=== PATIENT | female | born 1985 | race Caucasian/White ===

== ENCOUNTER 2018-12-02 10:59 | Inpatient (IN) ==
[2018-12-02] MEDS ORDERED: 0.9 % Sodium Chloride 1,000 ML IVC ONE (11:34)
[2018-12-02] MEDS ORDERED: Metoclopramide 10 MG/2 ML VIAL IVP ONE (11:34)
[2018-12-02 12:11] LABS: Basophils % 0.8 %; Eosinophils # 0.2 K/mcL (0.0-0.6); Eosinophils % 3.6 %; Hematocrit 41.3 % (35.3-44.9); Hemoglobin 14.2 g/dL (11.5-15.4); Immature Granulocytes % 0.4 % (0-4); Lymphocytes # 1.8 K/mcL (0.6-4.6); Lymphocytes % 34.5 %; Mean Corpuscular HGB Conc 34.4 g/dL (31.6-35.5); Mean Corpuscular Hemoglobin 30.9 pg (28.0-33.3); Mean Platelet Volume 10.1 fL (9.4-12.4); Monocytes # 0.4 K/mcL (0.0-1.3); Monocytes % 7.5 %; Neutrophils # 2.8 K/mcL (1.6-8.9); Platelet Count 238 K/mcL (140-400); Red Blood Count 4.59 M/mcL (3.82-4.97); Segmented Neutrophils % 53.2 %
[2018-12-02 12:24] LABS: BUN/Creatinine Ratio 14 (6-26); Blood Urea Nitrogen 11 mg/dL (6-20); Calcium 9.4 mg/dL (8.6-10.3); Carbon Dioxide 26 mEq/L (23-29); Chloride 106 mEq/L (98-107); Glucose 94 mg/dL (70-105); Osmolality,Calculated 281 (280-300); Potassium 3.8 mEq/L (3.5-5.1); Sodium 136 mEq/L (136-145); eGFR For Non-African Americans > 60 (> 60)
[2018-12-02] MEDS ORDERED: Acetaminophen/Butalbital/CaffeineTABLET PO STA (12:44)
[2018-12-02] MEDS ORDERED: Magnesium Sulfate 1 GM in D5% in Water 100 ML IVPB ONE (12:44)
[2018-12-02] MEDS ORDERED: Dexamethasone 4 MG/ML VIAL IVP ONE (12:44)
[2018-12-02] MEDS ORDERED: *HR* FentaNYL (PF) 100 MCG/2 ML VIAL IVP ONE ×2 (13:48→16:32)
[2018-12-02 14:53] LABS: Red Blood Cell,CSF < 0.002 M/mcL
[2018-12-02 15:08] LABS: Glucose,CSF 48 mg/dL (40-70); Total Protein,CSF 94 mg/dL (15-45)
[2018-12-02] MEDS ORDERED: Vancomycin 1,000 MG in D5% in Water 250 ML IVPB ONE (15:19)
[2018-12-02] MEDS ORDERED: *HR* HYDROcodone/Acet 5/325 mg TABLET PO PRN (15:33)
[2018-12-02] MEDS ORDERED: Naloxone 0.4 MG/ML INJ IVP PRN (15:33)
[2018-12-02] MEDS ORDERED: D5% in Water 1,000 ML IVC PRN (15:34)
[2018-12-02] MEDS ORDERED: Ketorolac 30 MG/ML VIAL IVP PRN (15:57)
--- NOTE | 2018-12-02 15:58 | Internal Med History&Physical ---
Date of Encounter: 12/02/18 Time of Encounter: 15:56 Internal Medicine - H&P: HPI Chief complaint: Headache Admitted From: Emergency Dept Plans for Post Hospital Care: Home History of present illness: Ms. Hahn is a 33 year old female with no significant past medical history who presented to the ED complaining of a headache that has been throbbing as well as neck pain and stiffness for the past 3 days. This started on Radha when she woke up experiencing significant neck pain and frontal headache was described as throbbing. She took Tylenol and aspirin did not help. This continued into the next day. She also felt some associated chills. She thinks she has had a fever but did not measure temperature. Today at work she could not move her neck to either side and was having significant headache and decided to come and get evaluated. She says she has had one episode of blurry vision with headaches as well. Denies any nausea, vomiting, dizziness, chest pain, shortness breath, abdominal pain, diarrhea, constipation, urinary symptoms, or neurological symptoms other than above. When she came to the ED the patient was hemodynamically stable. She had a CT head that was negative for any acute find ings. She had a lumbar puncture done with CSF fluid, and back with protein total of 94, glucose of 48, nucleated cells of 811. This was highly suggestive of meningitis and the patient was ordered acyclovir, vancomycin, and ceftriaxone. The patient tells me that she has severe allergy to penicillins as she was child that included significant findings as well as significant dyspnea. Past Med Surg Social Fam HX - Past Medical History Medical history: no medical history Additional medical history: ovarian cysts Psychiatric history: no psych history - Past Surgical History Surgical History: no surgical history Additional surgical history: partial hysterectomy - Social History Smoking Status: Current every day smoker Smokeless Tobacco Status: No Alcohol use: none Drug use: none Internal Medicine - H&P: Meds DiphenhydraMINE [Benadryl] 25 mg PO Q6HR PRN #20 capsule 06/28/18 [Rx] Hydrocortisone 1% OINT [Cortaid] 1 appl TP BID #1 tube 06/28/18 [Rx] predniSONE [PredniSONE] See Taper PO DAILY #18 tablet 06/28/18 [Rx] Allergy/AdvReac Type Severity Reaction Status Date / Time Amoxicillin Allergy Rash Verified 06/28/18 10:49 naproxen Allergy Anaphylaxis Verified 06/28/18 10:49 Penicillins Allergy Difficulty Verified 06/28/18 10:49 Breathing All Systems PM: A 10-system review of systems was performed and is negative for pertinent findings except as documented above in the HPI. Review of systems: All systems reviewed are negative except as mentioned above - Constitutional Vitals: Temp Pulse Resp BP Pulse Ox 98.3 F 98 16 121/81 100 12/02/18 15:17 12/02/18 15:17 12/02/18 15:17 12/02/18 15:17 12/02/18 15:17 Exam: GEN: NAD HEENT: AT, NC, No cyanosis, oral mucosa is moist, No JVD Lymphatics: No lymphadenoapthy Eyes: Extrocular muscles intact, anicteric CVS:RRR. S1, S2, No m/r/g RESP: CTAB ABD: Soft, NT, ND, +BS EXT: No edema, No rashes, 2+ DP NEURO: Nonfocal, CN II-XII intact, No focal motor or sensory deficits Psych: Cooperative, Not anxious or depressed Internal Med - H&P Results - Labs CBC & Chem 7: 12/02/18 11:53 12/02/18 11:53 Labs: Short CBC 12/02/18 Range/Units 11:53 WBC 5.3 (4.3-11.1) K/mcL Hgb 14.2 (11.5-15.4) g/dL Hct 41.3 (35.3-44.9) % Plt Count 238 (140-400) K/mcL Neutrophils # 2.8 (1.6-8.9) K/mcL BMP 12/02/18 11:53 Sodium 136 Potassium 3.8 Chloride 106 Carbon Dioxide 26 BUN 11 Creatinine 0.79 Glucose 94 Calcium 9.4 - Impressions ITS Impressions Head CT 12/02/18 11:34 IMPRESSION: No acute intracranial abnormality. D/ / Santino Elizabeth / Santino Elizabeth Interpreting Provider: Santino Elizabeth - Assessment and plan (1) Meningitis Current Visit: Yes Status: Acute Assessment and plan: Labs are suggestive of meningitis. Likely viral or bacterial. We will consult infectious disease. We will treat symptoms of headaches conservatively. We will put the patient on empiric treatment for now including acyclovir. I have discussed with pharmacy about antibiotics given her allergy to penicillins we will use meropenem. Also on vancomycin. Follow-up on CSF cultures. (2) Tobacco abuse Current Visit: Yes Status: Acute Assessment and plan: Nicotine patch (3) DVT prophylaxis Current Visit: Yes Status: Acute Assessment and plan: SCDs - Time Spent With Patient Total time spent is greater than 50% in coordination of care (as documented) at patient's floor/unit and/or counseling patient:
[2018-12-02] MEDS ORDERED: Acyclovir 1,000 MG in D5% in Water 250 ML IVPB ONE (16:00)
[2018-12-02 16:17] LABS: Appearance,CSF Clear (Clear)
--- NOTE | 2018-12-02 16:31 | Emergency Department Note ---
Disposition Clinical Impression: Meningitis Disposition: Admitted As Inpatient Condition: Fair Headache HPI - General Chief Complaint: ED Headache Stated Complaint: Headache, neck pain Time Seen by Provider: 12/02/18 11:12 Source: patient Mode of arrival: ambulatory Limitations: no limitations Nursing Notes Reviewed: Yes Vital Signs Reviewed: Yes - History of Present Illness HPI Narrative: 33-year-old female presents emergency Department with concerns of headache 2 days. Patient states she has severe neck pain, never usually has headaches. This headache is severe and worse of her life. She denies fever but reports chills. Patient is nauseated secondary to the pain. She has difficulty moving right to left on exam during the evaluation. Pain Scale: 10 - Related Data Previous Rx's Medication Instructions Recorded DiphenhydraMINE [Benadryl] 25 mg PO Q6HR PRN #20 capsule 06/28/18 Hydrocortisone 1% OINT [Cortaid] 1 appl TP BID #1 tube 06/28/18 predniSONE [PredniSONE] See Taper PO DAILY #18 tablet 06/28/18 Allergies Allergy/AdvReac Type Severity Reaction Status Date / Time Amoxicillin Allergy Rash Verified 06/28/18 10:49 naproxen Allergy Anaphylaxis Verified 06/28/18 10:49 Penicillins Allergy Difficulty Verified 06/28/18 10:49 Breathing All systems ED: reviewed and negative except as stated. Review of Systems: As Per HPI Headache PMH - Past Medical History Medical history: Reports: no medical history Female Surgical History: Reports: no surgical history Psychiatric history: Reports: no psych history [employer] history: Reports: bilateral tubal ligation - Social History Smoking Status: Current every day smoker Alcohol use: Reports: none Drug use: Reports: none Physical Exam General: Alert and in no acute distress Skin: Warm, dry, intact. No rash Head: Normocephalic and atraumatic Neck: Supple, trachea midline and no tenderness Cardiovascular: RRR, no murmur, normal perfusion Respiratory: CTAB, no wheezing, cough, or respiratory distress Musculoskeletal: Normal strength, no tenderness, swelling or deformity GI: Soft, nontender, nondistended. Bowel sounds present Neuro: A&O to person, place, time and situation. No focal deficits noted on exam Psychiatric: cooperative and appropriate mood and affect. Course Vital Signs Temperature 98.3 F 12/02/18 11:00 Pulse Rate 98 12/02/18 11:00 Respiratory Rate 16 12/02/18 11:00 Blood Pressure 121/81 12/02/18 11:00 O2 Sat by Pulse Oximetry 100 12/02/18 11:00 Temperature 98.3 F 12/02/18 15:17 Pulse Rate 98 12/02/18 15:17 Respiratory Rate 16 12/02/18 15:17 Blood Pressure 121/81 12/02/18 15:17 O2 Sat by Pulse Oximetry 100 12/02/18 15:17 Oxygen Delivery Oxygen Delivery Room Air Headache - MDM Narrative Medical decision making narrative: Lumbar puncture performed after discussion of risks and benefits and verbal and written consent obtained. Patient has significantly elevated leukocytosis on CSF results, it is unclear whether this is viral versus bacterial meningitis however I do believe that this is more likely viral. Patient was placed on isolation precautions and will be admitted to the hospitalist for further care and evaluation while cultures of the CSF are pending. She was started on acyclovir, ceftriaxone and vancomycin in the emergency department. - Medical Records Medical records reviewed: Yes I reviewed the patient's medical records. - Lab Data Lab results reviewed: Yes I reviewed the patient's lab results. Result diagrams: 12/02/18 11:53 12/02/18 11:53 Lab Results 12/02/18 12/02/18 12/02/18 Range/Units 11:53 11:53 14:17 WBC 5.3 (4.3-11.1) K/mcL RBC 4.59 (3.82-4.97) M/mcL Hgb 14.2 (11.5-15.4) g/dL Hct 41.3 (35.3-44.9) % MCV 90.0 (83.0-100.0) fL MCH 30.9 (28.0-33.3) pg MCHC 34.4 (31.6-35.5) g/dL RDW 12.0 (11.5-14.5) % Plt Count 238 (140-400) K/mcL MPV 10.1 (9.4-12.4) fL Immature Gran % 0.4 (0-4) % Seg Neutrophils % 53.2 % Lymphocytes % 34.5 % Monocytes % 7.5 % Eosinophils % 3.6 % Basophils % 0.8 % Neutrophils # 2.8 (1.6-8.9) K/mcL Lymphocytes # 1.8 (0.6-4.6) K/mcL Monocytes # 0.4 (0.0-1.3) K/mcL Eosinophils # 0.2 (0.0-0.6) K/mcL Basophils # 0.0 (0.0-0.2) K/mcL Sodium 136 (136-145) mEq/L Potassium 3.8 (3.5-5.1) mEq/L Chloride 106 (98-107) mEq/L Carbon Dioxide 26 (23-29) mEq/L BUN 11 (6-20) mg/dL Creatinine 0.79 (0.60-1.20) mg/dL Est GFR ( Amer) > 60 (> 60) Est GFR (Non-Af Amer) > 60 (> 60) BUN/Creatinine Ratio 14 (6-26) Glucose 94 (70-105) mg/dL Calculated Osmolality 281 (280-300) Calcium 9.4 (8.6-10.3) mg/dL CSF Volume 2.0 mL CSF Appearance Clear (Clear) CSF Color Colorless (Colorless) CSF RBC < 0.002 (0.000 - 0.002) M/mcL CSF Tot Nucleated Cells 811 H* (0-5) TNC/mcL CSF Seg Neutrophils TNP CSF Band Neutrophils % TNP CSF Lymphocytes % 100.0 % CSF Monocytes % TNP CSF Eosinophils % TNP CSF Basophils % TNP CSF Other Cells % TNP CSF Glucose 48 (40-70) mg/dL CSF Xanth Comm Not Observed (Not Observe) CSF Total Protein 94 H (15-45) mg/dL - Radiology Data Radiology results reviewed: Yes I reviewed the patient's radiology results.
[2018-12-02] MEDS: OXYCODONE Oral CONC 10 MG/0.5 ML ORAL.SYG SL PRN (18:15)
[2018-12-02] MEDS: Nicotine 21 MG PATCH.TD24 TD SCH (18:16)
[2018-12-03 04:13] LABS: Basophils % 0.3 %; Hematocrit 37.1 % (35.3-44.9); Immature Granulocytes % 0.3 % (0-4); Lymphocytes # 0.9 K/mcL (0.6-4.6); Lymphocytes % 15.5 %; Mean Corpuscular HGB Conc 34.8 g/dL (31.6-35.5); Mean Corpuscular Hemoglobin 30.9 pg (28.0-33.3); Mean Corpuscular Volume 88.8 fL (83.0-100.0); Mean Platelet Volume 10.1 fL (9.4-12.4); Monocytes # 0.4 K/mcL (0.0-1.3); Monocytes % 6.7 %; Neutrophils # 4.5 K/mcL (1.6-8.9); Platelet Count 234 K/mcL (140-400); Red Blood Count 4.18 M/mcL (3.82-4.97); Red Cell Distribution Width 11.7 % (11.5-14.5); Segmented Neutrophils % 77.2 %
[2018-12-03 04:18] LABS: Hemoglobin 12.9 g/dL (11.5-15.4)
[2018-12-03 04:31] LABS: BUN/Creatinine Ratio 16 (6-26); Blood Urea Nitrogen 10 mg/dL (6-20); Calcium 8.7 mg/dL (8.6-10.3); Carbon Dioxide 24 mEq/L (23-29); Chloride 103 mEq/L (98-107); Glucose 123 mg/dL (70-105); Magnesium 1.8 mg/dL (1.6-2.6); Osmolality,Calculated 290 (280-300); Potassium 3.9 mEq/L (3.5-5.1); Sodium 140 mEq/L (136-145); eGFR For Non-African Americans > 60 (> 60)
[2018-12-03] MEDS: Acetaminophen 325 MG TABLET PO PRN (04:49)
[2018-12-03] MEDS ORDERED: traMADol 50 MG TABLET PO ONE (05:06)
[2018-12-03] MEDS ORDERED: Acyclovir 700 MG in D5% in Water 100 ML IVPB SCH (08:00)
[2018-12-03] MEDS: Nicotine 21 MG PATCH.TD24 TD SCH (08:46)
--- NOTE | 2018-12-03 09:12 | Infectious Disease Consult ---
Date of Encounter: 12/03/18 Time of Encounter: 10:00 Assessment and Plan (1) Meningitis Status: Acute Assessment and plan: Pt presented with headache/neck pain, back pain. Pt likely has asceptic meningitis, likely viral. Lumbar puncture with CSF analysis showed: - clear, colorless, RBC < 0.002, total nucleated cells 811, lymphocytes 100%, glucose 48, xanthochromia not observed, and total protein 94 - based on results of CSF it suggests aseptic meningitis, likely viral meningitis 12/02/18 Influenza type A/B antigen negative 12/02/18 CSF cryptococcal antigen negative 12/02/18 CSF culture: pending 12/02/18 Herpes simplex PCR body fluid/ 12/02/18 Herpes PCR blood pending 12/02/18 Varicella zoster virus PCR pending 12/03/18 Respiratory infection panel ordered and pending Recommendations: - Currently pt is on acyclovir, meropenem, and vancomycin - Stop medication regiment if pt clinically stable with no fever, focal neurologic deficits, altered mental status, and no signs of bacterial meningitis or encephalitis - Aseptic meningitis likely to resolve on its own within 7-10 days - monitor for worsening clinical condition - monitor labs - isolation precautions can be removed if respiratory infection panel comes back negative (2) Allergy to penicillin Status: Acute Assessment and plan: Pt has allergies/adverse reactions to the following: - Amoxicillin - rash, hives - Penicillins - difficulty breathing Infectious Disease HPI - Data of Consult Patient: known to practice within the last 3 years Requesting Physician: Cain Barkley Primary Care Provider: PCP NONE - Consult Narrative Reason for consult: suspected meningitis History of present illness: Ms. Hahn is a 33 year old female who presented to [facility] ED on 12/02/18 for headache and neck pain. ID was consulted on 12/02/18 for suspected meningitis. Pt is a 33 y/o female that does not have a significant PMH or PSH. She presented to the ED complaining of a headache and severe neck pain that started 3 days ago. The patient said this started roughly 3 days ago when she had a headache in the frontal region of her head. She took tylenol with no relief. The following morning she woke up with a throbbing headache in the frontal region that went down her head into her neck and all the way down her back. The patient rated the severity of pain as 10/10. She had photophobia but denied any nausea, vomiting, or any other symptoms. On admission her vitals were afebrile, HR 98, RR 16, BP 121/81. The patient lives at home with her and 2 kids aged 13 and 6. Her occupation is at [employer]. The pt states she had an upper respiratory infection about 1/2 weeks ago with runny nose, sore throat, and sinus pressure. She also admits that one of her kids was sick roughly 2 weeks ago as well. This may possibly be source of viral infection leading to pts symptoms. Since admission she has been afebrile, HR 84 (HR max 111), RR 18, slightly hypotensive BP 97/62, WBC 5.8, Segmented neutrophils went from 53.2% to 77.2%, no bands. BUN 10, Cr 0.62, Cr Cl > 90 ml/min. Lumbar puncture with CSF analysis showed total nucleated cells 811, lymphocytes 100%, glucose 48, no xanthochromia observed, and total protein 94. Influenza types A, B antigen was negative. CSF cryptoccal antigen is negative. CSF culture is pending. The pts CSF analysis results are more indicative of aseptic meningitis, likely viral meningitis, no signs of bacterial meningitis. Head CT showed no acute abnormality. The patient does not have any signs of focal neurologic deficits, confusion, or altered mental status. The patient mostly complains of the headache and stiff neck. The patient was started on acyclovir, vancomycin, and meropenem in the ED and is currently on them while the CSF culture finalizes. Currently, the patient is resting and was seen at bedside. She has had some improvement in the headache and neck pain with severity of 8/10. Pt denies nausea/vomiting, photophobia has decreased, no upper respiratory infection symtoms. Pt also denies chest pain, abdominal pain, or any other acute changes. CC: Cain Barkley Past Med Surg Social Fam HX - Past Medical History Medical history: no medical history Additional medical history: ovarian cysts Psychiatric history: no psych history - Past Surgical History Surgical History: no surgical history Additional surgical history: partial hysterectomy - Social History Smoking Status: Current every day smoker Packs per day: 1/2 Smokeless Tobacco Status: No Alcohol use: none Drug use: none Infectious Disease-CN:Meds No Known Home Drugs 12/03/18 [History] Allergy/AdvReac Type Severity Reaction Status Date / Time Amoxicillin Allergy Rash Verified 12/03/18 13:54 naproxen Allergy Anaphylaxis Verified 12/03/18 13:54 Penicillins Allergy Difficulty Verified 12/03/18 13:54 Breathing Review of systems: 10 point ROS done, negative other for what's mentioned in the HPI - Constitutional Constitutional: Present: chills, headache(s). Absent: fever(s) - EENT Eyes: Present: photophobia. Absent: blurry vision, change in vision, diplopia Nose, mouth and throat: Present: neck pain. Absent: abnormal hearing, dry mouth, post-nasal drip, sore throat, throat swelling - Cardiovascular Cardiovascular: Absent: chest pain, leg edema, pedal edema, radiating pain - Respiratory Respiratory: Absent: cough, dyspnea, hemoptysis - Gastrointestinal Gastrointestinal: Absent: abdominal pain, nausea, vomiting - Musculoskeletal Musculoskeletal: Present: back pain, neck pain. Absent: numbness, tingling - Integumentary Integumentary: Absent: lesions, rash - Neurological Neurological: Present: headache(s). Absent: loss of vision, numbness, sensory deficit, tingling Exam - Constitutional Vitals: Temp Pulse Resp BP Pulse Ox 98.0 F 84 18 97/62 98 12/03/18 06:54 12/03/18 06:54 12/03/18 06:54 12/03/18 06:54 12/03/18 06:54 General appearance: average body habitus, cooperative, mild distress - Head Head exam: Present: atraumatic, normal inspection, normocephalic - Eye Eye exam: Present: normal appearance, PERRL. Absent: conjunctival injection, scleral icterus - ENT ENT exam: Present: mucous membranes moist - Neck Neck exam: Absent: full ROM Additional comments: Decreased ROM and pain with neck flexion - Respiratory Respiratory exam: Present: CTAB. Absent: accessory muscle use, decreased breath sounds, rhonchi, wheezes - Cardiovascular Cardiovascular exam: Present: RRR, +S1, +S2. Absent: clicks, gallop, rubs, +S3, +S4 - GI/Abdominal GI/Abdominal exam: Present: normal bowel sounds. Absent: guarding, tenderness - Extremities Exam Extremities exam: Present: normal inspection. Absent: pedal edema, tenderness - Neurological Exam Neurological exam: Present: alert. Absent: no focal deficits, speech deficit - Skin Skin exam: Present: intact, normal color. Absent: rash Infectious Disease CN: Results - Labs CBC & Chem 7: 12/03/18 03:39 12/03/18 03:39 Cultures: Cultures 12/02/18 16:14 CSF Culture - Preliminary Cerebral Spinal Fluid 12/02/18 14:11 Influenza Types A,B Antigen - Final Nasopharyngeal Serology: Serology 12/02/18 Range/Units 14:17 CSF Volume 2.0 mL CSF Appearance Clear (Clear) CSF Color Colorless (Colorless) CSF RBC < 0.002 (0.000 - 0.002) M/mcL CSF Tot Nucleated Cells 811 H* (0-5) TNC/mcL CSF Seg Neutrophils TNP CSF Band Neutrophils % TNP CSF Lymphocytes % 100.0 % CSF Monocytes % TNP CSF Eosinophils % TNP CSF Basophils % TNP CSF Other Cells % TNP CSF Glucose 48 (40-70) mg/dL CSF Xanth Comm Not Observed (Not Observe) CSF Total Protein 94 H (15-45) mg/dL Consult Discharge Plan - Plan Referrals: NONE,PCP [Primary Care Provider] - - Attending Attestation I examined this patient and my medical decision-making was reviewed with the Resident Physician. I agree with the documented findings, disposition and treatment plan as described except to the extent set forth below. Patient is a 33 year old woman with no past medical history and negative social history for tobacco, etoh or drug use who works at [employer] with her and 2 children (age 13 and 6) with no recent travel was in the usual state of health until Nov 30 when she started having headache that was diffuse followed by neck stiffness. She denied any fevers but did have chills and rigors. no nausea or vomiting. no confusion or altered mentation. no photophobia. On further questioning, patient states she didnt take the flu shot this year. she denies history of cold sores. Patient tells me that 2-3 weeks prior to admission her son had URI symptoms. A week prior to admission she had sore throat, rhinorrhea and sinus pressuer who has since resolved. Patient denies any othe rsick contacts. Patient denies any history of HIV, Hepatitis, TB etc. Since admission, patient has been afebrile, WBC normal. CT head negative for acute process or sinusitis. LP done and showed pleocytosis 800 with 100% lymphocytes. CSF glucose WNL and protein slightly elevated. gram stain was negative. On exam: Constitutional: no fevers, non toxic. Alert and oriented x 4. on change in mentation. No lethargy HEENT: LESLIE, EOMI, no oral lesions.Neck mildly stiff with mild meningeal signs LUNGS: CTA B CV: RRR S1S2 no murmur Abdomen: soft, non tender, no hepatosplenomegaly EXT: no edema, adequate perfusion Skin: no rash Neuro: intact Labs Noted A/P: 1. Aseptic meningitis likely secondary to respiratory viral syndrome. -no associated encephalopathy (HSV unlikely) -gram stain and CSF cultues no growth to date -LP suggestive of viral meningitis (WBC 800 with 100%Lymphocyte) 2. Allergies to PCN - had hives about 20 years ago Recommendations: I believe this is all viral based on the history and exposure and LP findings d/c meropenem and vancomycin patient also with no encephalitis so I dont believe this is HSV encephalitis; will d/c acyclovir check RIP, if negative, d/c droplet isolation
[2018-12-03] MEDS ORDERED: Ketorolac 30 MG/ML VIAL IVP ONE (10:26)
--- NOTE | 2018-12-03 10:31 | Internal Med Progress Note ---
Hospitalist Progress Note - Encounter Date of Encounter: 12/03/18 Time of Encounter: 10:28 - Subjective Interval History: Patient was seen and examined. She was admitted yesterday by myself for suspected meningitis. ID is cons. She is consulted. continues to complain of a headache. Afebrile. - Exam Vitals: Temp Pulse Resp BP Pulse Ox 98.0 F 84 18 97/62 98 12/03/18 06:54 12/03/18 06:54 12/03/18 06:54 12/03/18 06:54 12/03/18 08:45 Exam: GEN: NAD CVS:RRR. S1, S2, No m/r/g RESP: CTAB ABD: Soft, NT, ND, +BS EXT: No edema, No rashes, 2+ DP NEURO: Nonfocal, CN II-XII intact, No focal motor or sensory deficits - Assessment and Plan (1) Meningitis Current Visit: Yes Status: Acute Assessment and Plan: Labs are suggestive of meningitis. Likely viral over bacterial. consult infectious disease pending. cultures neg so far. We will treat symptoms of headaches conservatively. c/w acyclovir. I have discussed with pharmacy about antibiotics given her allergy to penicillins. She is on meropenem. Also on vancomycin. Follow-up on CSF cultures. Gentle hydration while on Acyclovir (2) Tobacco abuse Current Visit: Yes Status: Acute Assessment and Plan: Nicotine patch (3) DVT prophylaxis Current Visit: Yes Status: Acute Assessment and Plan: SCDs - Time Spent with Patient Total time spent is greater than 50% in coordination of care (as documented) at patient's floor/unit and/or counseling patient: Internal Medicine: Result - Labs CBC & Chem 7: 12/03/18 03:39 12/03/18 03:39 Labs: Short CBC 12/02/18 12/03/18 Range/Units 11:53 03:39 WBC 5.3 5.8 (4.3-11.1) K/mcL Hgb 14.2 12.9 (11.5-15.4) g/dL Hct 41.3 37.1 (35.3-44.9) % Plt Count 238 234 (140-400) K/mcL Neutrophils # 2.8 4.5 (1.6-8.9) K/mcL BMP 12/02/18 12/03/18 11:53 03:39 Sodium 136 140 Potassium 3.8 3.9 Chloride 106 103 Carbon Dioxide 26 24 BUN 11 10 Creatinine 0.79 0.62 Glucose 94 123 H Calcium 9.4 8.7 - Impressions Impressions Head CT 12/02/18 11:34 IMPRESSION: No acute intracranial abnormality. D/ / Santino Elizabeth / Santino Elizabeth Interpreting Provider: Santino Elizabeth Consult Discharge Plan - Plan Referrals: NONE,PCP [Primary Care Provider] -
[2018-12-03] MEDS: 0.9 % Sodium Chloride 1,000 ML IVC SCH ×2 (12:15→20:37)
[2018-12-03] MEDS: OXYCODONE Oral CONC 10 MG/0.5 ML ORAL.SYG SL PRN ×2 (12:53→17:44)
[2018-12-03 16:05] LABS: Adenovirus Not Detected (Not Detect); Bordetella Pertussis Not Detected (Not Detect); Chlamydophila pneumoniae Not Detected (Not Detect); Coronavirus 229E Not Detected (Not Detect); Coronavirus HKU1 Not Detected (Not Detect); Coronavirus NL63 Not Detected (Not Detect); Coronavirus OC43 Not Detected (Not Detect); Human Metapneumovirus Not Detected (Not Detect); Human Rhinovirus/Enterovirus Not Detected (Not Detect); Influenza A Subtype 2009 H1 Not Detected (Not Detect); Influenza A Untypeable Not Detected (Not Detect); Influenza B Not Detected (Not Detect); Mycoplasma pneumoniae Not Detected (Not Detect); Parainfluenza Virus 1 Not Detected (Not Detect); Parainfluenza Virus 2 Not Detected (Not Detect); Parainfluenza Virus 3 Not Detected (Not Detect); Parainfluenza Virus 4 Not Detected (Not Detect); Respiratory Syncytial Virus Not Detected (Not Detect)
[2018-12-03] MEDS: Ondansetron 4 MG/2 ML VIAL IVP PRN (17:45)
[2018-12-03] MEDS ORDERED: Aminoglycoside Consult 1 EACH MC ONE (18:55)
[2018-12-03] MEDS: Ketorolac 30 MG/ML VIAL IVP PRN (20:26)
[2018-12-04] MEDS: Ondansetron 4 MG/2 ML VIAL IVP PRN ×2 (04:36→16:03)
[2018-12-04] MEDS: Ketorolac 30 MG/ML VIAL IVP PRN ×2 (04:39→21:01)
[2018-12-04] MEDS: OXYCODONE Oral CONC 10 MG/0.5 ML ORAL.SYG SL PRN ×2 (04:47→16:03)
[2018-12-04] MEDS ORDERED: Famotidine 20 MG/2 ML VIAL IVP ONE (09:50)
[2018-12-04] MEDS ORDERED: Ketorolac 30 MG/ML VIAL IVP ONE (09:50)
--- NOTE | 2018-12-04 09:50 | Internal Med Progress Note ---
Hospitalist Progress Note - Encounter Date of Encounter: 12/04/18 Time of Encounter: 09:50 - Subjective Interval History: Patient was seen and examined. She was seen by ID and abx stopped yesterday as they suspect viral meningitis. The patient is having significant headache and is shivering. Tmax 100.2 She was admitted by myself for suspected meningitis. - Exam Vitals: Temp Pulse Resp BP Pulse Ox 99.7 F H 111 18 92/58 97 12/04/18 07:00 12/04/18 07:00 12/04/18 07:00 12/04/18 07:00 12/04/18 07:00 Exam: GEN: NAD CVS:RRR. S1, S2, No m/r/g RESP: CTAB ABD: Soft, NT, ND, +BS EXT: No edema, No rashes, 2+ DP NEURO: Nonfocal, CN II-XII intact, No focal motor or sensory deficits - Assessment and Plan (1) Meningitis Current Visit: Yes Status: Acute Assessment and Plan: Labs are suggestive of meningitis. Likely viral over bacterial. ID agrees. Abx stopped. Has significant headache and nausea this morning and is shivering. Tmax 100.2. No discharge today due to that. Will give a migraine cocktail. Continue Toradol when necessary. She is also on oxycodone and Percocets. She says those give her temporary relief. cultures neg so far. Viral panel negative. HSV PCR from CSF pending still. Stop IV fluids. Change symptomatic treatment. (2) Tobacco abuse Current Visit: Yes Status: Acute Assessment and Plan: Nicotine patch (3) DVT prophylaxis Current Visit: Yes Status: Acute Assessment and Plan: SCDs - Time Spent with Patient Total time spent is greater than 50% in coordination of care (as documented) at patient's floor/unit and/or counseling patient: Internal Medicine: Result - Labs CBC & Chem 7: 12/04/18 09:58 12/03/18 03:39 Consult Discharge Plan - Plan Referrals: NONE,PCP [Primary Care Provider] -
[2018-12-04] MEDS: Nicotine 21 MG PATCH.TD24 TD SCH (09:59)
[2018-12-04 10:28] LABS: Basophils # 0.1 K/mcL (0.0-0.2); Basophils % 0.6 %; Eosinophils # 0.2 K/mcL (0.0-0.6); Eosinophils % 2.7 %; Hematocrit 35.2 % (35.3-44.9); Hemoglobin 11.7 g/dL (11.5-15.4); Immature Granulocytes % 0.2 % (0-4); Lymphocytes # 2.1 K/mcL (0.6-4.6); Mean Corpuscular HGB Conc 33.2 g/dL (31.6-35.5); Mean Corpuscular Hemoglobin 30.4 pg (28.0-33.3); Mean Corpuscular Volume 91.4 fL (83.0-100.0); Monocytes # 0.7 K/mcL (0.0-1.3); Monocytes % 7.8 %; Neutrophils # 5.4 K/mcL (1.6-8.9); Platelet Count 198 K/mcL (140-400); Red Blood Count 3.85 M/mcL (3.82-4.97); Red Cell Distribution Width 11.9 % (11.5-14.5); Segmented Neutrophils % 63.7 %
--- NOTE | 2018-12-04 11:13 | Infectious Disease Progress No ---
Date of Encounter: 12/04/18 Time of Encounter: 11:11 - Assessment and Plan (1) Meningitis Current Visit: Yes Status: Acute Symptoms consistent with meningitis. Status post LP 12/02/18. CSF TNC 811 with 100% lymphocytes and elevated protein. Gram stain is negative. Cultures no growth. Likely viral in etiology. Respiratory infectious panel negative. Clinically, the patient appears ill and states she does not feel any better today. Recommendations: Await CSF culture to finalize. Add adenovirus and enterovirus PCR to the CSF. Await HSV PCR on the CSF. Continue supportive care (anti-emetics, IV fluids, pain management) per the primary team. (2) Tobacco abuse Current Visit: Yes Status: Acute (3) Allergy to penicillin Current Visit: Yes Status: Acute Pt has allergies/adverse reactions to the following: - Amoxicillin - rash, hives - Penicillins - difficulty breathing - Subjective Interval history: Patient seen and examined. No acute events noted overnight. Patient states overall she feels very poorly this morning. Continues to report fevers with chills and rigors. She complains of severe posterior headache and neck stiffness. She states the light hurts her eyes. She reports nausea with vomiting this morning. Denies abdominal pain, chest pain, shortness of breath, or cough. Denies oral thrush or new skin lesions. Infect Dis PN-Objective Data - Labs CBC & Chem 7: 12/04/18 09:58 12/03/18 03:39 Labs: Laboratory Results - last 24 hr 12/03/18 12/04/18 14:45 09:58 WBC 8.5 RBC 3.85 Hgb 11.7 Hct 35.2 L MCV 91.4 MCH 30.4 MCHC 33.2 RDW 11.9 Plt Count 198 MPV 10.0 Immature Gran % 0.2 Seg Neutrophils % 63.7 Lymphocytes % 25.0 Monocytes % 7.8 Eosinophils % 2.7 Basophils % 0.6 Neutrophils # 5.4 Lymphocytes # 2.1 Monocytes # 0.7 Eosinophils # 0.2 Basophils # 0.1 Chlamy pneumoniae PCR Not Detected Adenovirus (PCR) Not Detected B. pertussis DNA (PCR) Not Detected B.parapertussis DNA PCR Not Detected Coronavirus OC43 (PCR) Not Detected Coronavirus HKU1 (PCR) Not Detected Coronavirus 229E (PCR) Not Detected Coronavirus NL63 (PCR) Not Detected Human Metapneumovir PCR Not Detected Influenza A (H1) PCR Not Detected Influ A (H1N1/09) PCR Not Detected Influenza A (H3) PCR Not Detected Influenza A Untype (PCR) Not Detected Influenza Type B (PCR) Not Detected M.pneumoniae DNA (PCR) Not Detected Parainfluenza 1 (PCR) Not Detected Parainfluenza 2 (PCR) Not Detected Parainfluenza 3 (PCR) Not Detected Parainfluenza 4 (PCR) Not Detected RSV (PCR) Not Detected Entero/Rhino (PCR) Not Detected Cultures: Cultures 12/02/18 16:14 CSF Culture - Preliminary Cerebral Spinal Fluid 12/02/18 16:14 Cryptococcal Antigen - Final Cerebral Spinal Fluid 12/02/18 14:11 Influenza Types A,B Antigen - Final Nasopharyngeal Serology 12/03/18 12/02/18 Range/Units 14:45 14:17 CSF Volume 2.0 mL CSF Appearance Clear (Clear) CSF Color Colorless (Colorless) CSF RBC < 0.002 (0.000 - 0.002) M/mcL CSF Tot Nucleated Cells 811 H* (0-5) TNC/mcL CSF Seg Neutrophils TNP CSF Band Neutrophils % TNP CSF Lymphocytes % 100.0 % CSF Monocytes % TNP CSF Eosinophils % TNP CSF Basophils % TNP CSF Other Cells % TNP CSF Glucose 48 (40-70) mg/dL CSF Xanth Comm Not Observed (Not Observe) CSF Total Protein 94 H (15-45) mg/dL Chlamy pneumoniae PCR Not Detected (Not Detect) Adenovirus (PCR) Not Detected (Not Detect) B. pertussis DNA (PCR) Not Detected (Not Detect) B.parapertussis DNA PCR Not Detected (Not Detect) Coronavirus OC43 (PCR) Not Detected (Not Detect) Coronavirus HKU1 (PCR) Not Detected (Not Detect) Coronavirus 229E (PCR) Not Detected (Not Detect) Coronavirus NL63 (PCR) Not Detected (Not Detect) Human Metapneumovir PCR Not Detected (Not Detect) Influenza A (H1) PCR Not Detected (Not Detect) Influ A (H1N1/09) PCR Not Detected (Not Detect) Influenza A (H3) PCR Not Detected (Not Detect) Influenza A Untype (PCR) Not Detected (Not Detect) Influenza Type B (PCR) Not Detected (Not Detect) M.pneumoniae DNA (PCR) Not Detected (Not Detect) Parainfluenza 1 (PCR) Not Detected (Not Detect) Parainfluenza 2 (PCR) Not Detected (Not Detect) Parainfluenza 3 (PCR) Not Detected (Not Detect) Parainfluenza 4 (PCR) Not Detected (Not Detect) RSV (PCR) Not Detected (Not Detect) Entero/Rhino (PCR) Not Detected (Not Detect) Exam - Constitutional Vitals: Temp Pulse Resp BP Pulse Ox 99.7 F H 111 18 92/58 97 12/04/18 07:00 12/04/18 07:00 12/04/18 07:00 12/04/18 07:00 12/04/18 07:00 General appearance: average body habitus, febrile, cooperative Exam: Ill appearing. - Head Head exam: Present: atraumatic, normal inspection - Eye Eye exam: Present: EOMI, normal appearance, PERRL Pupils: Present: normal accommodation - ENT ENT exam: Present: mucous membranes moist - Neck Neck exam: Present: meningismus, normal inspection - Respiratory Respiratory exam: Present: CTAB. Absent: rales, respiratory distress, rhonchi, wheezes - Cardiovascular Cardiovascular exam: Present: +S1, +S2, tachycardia. Absent: irregular rhythm - GI/Abdominal GI/Abdominal exam: Present: normal bowel sounds, soft. Absent: distended, tenderness - Extremities Exam Extremities exam: Present: normal inspection. Absent: joint swelling, pedal edema, tenderness - Back Exam Back exam: Present: normal inspection - Neurological Exam Neurological exam: Present: alert, oriented X3, no focal deficits - Psychiatric Psychiatric exam: Present: normal affect, normal mood - Skin Skin exam: Present: dry, intact, normal color, warm Consult Discharge Plan - Plan Referrals: NONE,PCP [Primary Care Provider] - - Attending Attestation I examined this patient and my medical decision-making was reviewed with the Resident Physician. I agree with the documented findings, disposition and treatment plan as described except to the extent set forth below.
[2018-12-04] MEDS: 0.9 % Sodium Chloride 1,000 ML IVC SCH (11:22)
[2018-12-04] MEDS: Acetaminophen 325 MG TABLET PO PRN (16:02)
[2018-12-05] MEDS: OXYCODONE Oral CONC 10 MG/0.5 ML ORAL.SYG SL PRN ×3 (03:10→21:40)
[2018-12-05] MEDS: Acetaminophen 325 MG TABLET PO PRN ×2 (04:54→12:27)
[2018-12-05] MEDS: Ketorolac 30 MG/ML VIAL IVP PRN ×3 (04:59→19:35)
[2018-12-05] MEDS: Ondansetron 4 MG/2 ML VIAL IVP PRN ×2 (05:00→19:41)
--- NOTE | 2018-12-05 08:58 | Internal Med Progress Note ---
Hospitalist Progress Note - Encounter Date of Encounter: 12/05/18 Time of Encounter: 11:00 - Subjective Interval History: Patient presented due to headaches and neck pain being managed for suspected viral meningitis - Exam Vitals: Temp Pulse Resp BP Pulse Ox 101.2 F H 91 20 112/72 97 12/05/18 05:04 12/05/18 05:04 12/05/18 05:04 12/05/18 05:04 12/05/18 05:04 Exam: GEN: NAD CVS:RRR. S1, S2, No m/r/g RESP: CTAB ABD: Soft, NT, ND, +BS EXT: No edema, No rashes, 2+ DP NEURO: Nonfocal, CN II-XII intact, No focal motor or sensory deficits - Assessment and Plan (1) Meningitis Current Visit: Yes Status: Acute Assessment and Plan: Labs are suggestive of meningitis Cultures and HSV PCR from CSF pending Patient with a MAXIMUM TEMPERATURE of 101.2 this morning Infectious disease consulted and suspects viral over bacterial therefore a ntibiotics stopped. Continue Toradol when necessary for headaches and she is also on oxycodone and Percocets. Infectious disease following an appreciate any further recommendations (2) Tobacco abuse Current Visit: Yes Status: Acute Assessment and Plan: Nicotine patch DVT Prophylaxis: SCDs - Time Spent with Patient Total time spent is greater than 50% in coordination of care (as documented) at patient's floor/unit and/or counseling patient: Internal Medicine: Result - Labs CBC & Chem 7: 12/05/18 09:08 12/05/18 09:08 Labs: Short CBC 12/04/18 Range/Units 09:58 WBC 8.5 (4.3-11.1) K/mcL Hgb 11.7 (11.5-15.4) g/dL Hct 35.2 L (35.3-44.9) % Plt Count 198 (140-400) K/mcL Neutrophils # 5.4 (1.6-8.9) K/mcL Consult Discharge Plan - Plan Referrals: NONE,PCP [Primary Care Provider] -
[2018-12-05 09:22] LABS: Basophils # 0.1 K/mcL (0.0-0.2); Basophils % 0.9 %; Eosinophils # 0.3 K/mcL (0.0-0.6); Eosinophils % 5.4 %; Hematocrit 34.4 % (35.3-44.9); Immature Granulocytes % 0.2 % (0-4); Lymphocytes % 35.4 %; Mean Corpuscular HGB Conc 34.9 g/dL (31.6-35.5); Mean Corpuscular Volume 88.9 fL (83.0-100.0); Mean Platelet Volume 9.8 fL (9.4-12.4); Monocytes # 0.5 K/mcL (0.0-1.3); Monocytes % 9.5 %; Neutrophils # 2.7 K/mcL (1.6-8.9); Platelet Count 193 K/mcL (140-400); Red Blood Count 3.87 M/mcL (3.82-4.97); Red Cell Distribution Width 11.6 % (11.5-14.5); Segmented Neutrophils % 48.6 %
[2018-12-05] MEDS: Nicotine 21 MG PATCH.TD24 TD SCH (09:33)
[2018-12-05 09:40] LABS: BUN/Creatinine Ratio 16 (6-26); Blood Urea Nitrogen 11 mg/dL (6-20); Calcium 8.6 mg/dL (8.6-10.3); Carbon Dioxide 27 mEq/L (23-29); Chloride 107 mEq/L (98-107); Glucose 113 mg/dL (70-105); Osmolality,Calculated 282 (280-300); Potassium 3.8 mEq/L (3.5-5.1); Sodium 136 mEq/L (136-145); eGFR For Non-African Americans > 60 (> 60)
[2018-12-05] MEDS ORDERED: 0.9 % Sodium Chloride 500 ML IVC ONE ×2 (09:53→10:35)
[2018-12-05] MEDS ORDERED: 0.9 % Sodium Chloride 500 ML ONE ×2 (09:55→10:44)
[2018-12-05] MEDS ORDERED: hydrOXYzine pamoate 25 MG CAPSULE PO ONE (12:16)
[2018-12-05] MEDS: 0.9 % Sodium Chloride 1,000 ML IVC SCH ×2 (13:22→21:55)
[2018-12-06] MEDS: Ketorolac 30 MG/ML VIAL IVP PRN ×3 (01:14→18:38)
[2018-12-06] MEDS: Acetaminophen 325 MG TABLET PO PRN ×2 (01:19→15:25)
[2018-12-06] MEDS: Ondansetron 4 MG/2 ML VIAL IVP PRN ×3 (01:25→22:26)
[2018-12-06] MEDS: 0.9 % Sodium Chloride 1,000 ML IVC SCH ×2 (08:08→18:39)
[2018-12-06 08:28] LABS: Herpes Simplex PCR Qual Res NOT DETECTED
--- NOTE | 2018-12-06 09:17 | Internal Med Progress Note ---
Hospitalist Progress Note - Encounter Date of Encounter: 12/06/18 Time of Encounter: 11:00 - Subjective Interval History: Patient still complaining of headaches this morning currently on Tylenol, IV Toradol and sublingual oxycodone 10 mg Patient did have a MAXIMUM TEMPERATURE of 100.0 overnight - Exam Vitals: Temp Pulse Resp BP Pulse Ox 98.7 F 53 17 116/73 98 12/06/18 07:31 12/06/18 07:31 12/06/18 07:31 12/06/18 07:31 12/06/18 08:26 Exam: Gen.: Nonacute distress, alert and oriented 3 ENT: Mucosal membranes moist Respiratory: Lungs are clear to auscultation bilaterally without any wheezing rhonchi or rales Cardiovascular: Normal S1 and S2 regular rate rhythm no murmurs rubs or gallops Abdomen: Soft, nontender and nondistended with positive bowel sounds Extremities: No lower extremity edema Skin: Normal color - Assessment and Plan (1) Meningitis Current Visit: Yes Status: Acute Assessment and Plan: Patient still complaining of headaches this morning currently on Tylenol, IV Toradol and sublingual oxycodone 10 mg Patient did have a MAXIMUM TEMPERATURE of 100.0 overnight Lumbar puncture on 12/02/18 revealed cerebrospinal fluid with 811 total nucleated cells with 100% lymphocytes, glucose of 48 and total protein of 94 Culture of cerebral spinal fluid negative as well as cryptococcal antigen Cultures for adenovirus and enterovirus PCR pending Infectious disease following and suspects viral etiology as respiratory infec tious panel negative as well. Will continue supportive care pain control for headaches and anti-emetics as needed in addition to IV fluids Infectious disease following an appreciate any additional recommendations. (2) Tobacco abuse Current Visit: Yes Status: Acute Assessment and Plan: Nicotine patch DVT Prophylaxis: SCDs - Time Spent with Patient Total time spent is greater than 50% in coordination of care (as documented) at patient's floor/unit and/or counseling patient: Internal Medicine: Result - Labs CBC & Chem 7: 12/06/18 09:58 12/06/18 09:58 Labs: Short CBC 12/05/18 Range/Units 09:08 WBC 5.6 (4.3-11.1) K/mcL Hgb 12.0 (11.5-15.4) g/dL Hct 34.4 L (35.3-44.9) % Plt Count 193 (140-400) K/mcL Neutrophils # 2.7 (1.6-8.9) K/mcL BMP 12/05/18 09:08 Sodium 136 Potassium 3.8 Chloride 107 Carbon Dioxide 27 BUN 11 Creatinine 0.67 Glucose 113 H Calcium 8.6 Consult Discharge Plan - Plan Referrals: NONE,PCP [Primary Care Provider] -
[2018-12-06 10:33] LABS: HSV Source CSF
[2018-12-06 10:58] LABS: Basophils % 0.7 %; Eosinophils # 0.3 K/mcL (0.0-0.6); Eosinophils % 7.3 %; Hematocrit 32.2 % (35.3-44.9); Hemoglobin 11.2 g/dL (11.5-15.4); Immature Granulocytes % 0.2 % (0-4); Lymphocytes # 1.2 K/mcL (0.6-4.6); Lymphocytes % 26.7 %; Mean Corpuscular HGB Conc 34.8 g/dL (31.6-35.5); Mean Corpuscular Hemoglobin 30.6 pg (28.0-33.3); Mean Platelet Volume 10.2 fL (9.4-12.4); Monocytes # 0.5 K/mcL (0.0-1.3); Neutrophils # 2.5 K/mcL (1.6-8.9); Platelet Count 190 K/mcL (140-400); Red Blood Count 3.66 M/mcL (3.82-4.97); Red Cell Distribution Width 11.4 % (11.5-14.5); Segmented Neutrophils % 54.1 %
[2018-12-06 11:11] LABS: BUN/Creatinine Ratio 20 (6-26); Blood Urea Nitrogen 11 mg/dL (6-20); Calcium 8.3 mg/dL (8.6-10.3); Carbon Dioxide 22 mEq/L (23-29); Chloride 110 mEq/L (98-107); Glucose 83 mg/dL (70-105); Osmolality,Calculated 283 (280-300); Potassium 3.6 mEq/L (3.5-5.1); Sodium 137 mEq/L (136-145); eGFR For Non-African Americans > 60 (> 60)
[2018-12-06] MEDS: OXYCODONE Oral CONC 10 MG/0.5 ML ORAL.SYG SL PRN (13:12)
[2018-12-06] MEDS: Nicotine 21 MG PATCH.TD24 TD SCH (13:13)
[2018-12-06] MEDS: Acetaminophen/Butalbital/CaffeineTABLET PO PRN (22:26)
[2018-12-07] MEDS: Ketorolac 30 MG/ML VIAL IVP PRN ×2 (03:14→12:14)
[2018-12-07] MEDS: Acetaminophen/Butalbital/CaffeineTABLET PO PRN ×3 (04:11→16:21)
[2018-12-07] MEDS: 0.9 % Sodium Chloride 1,000 ML IVC SCH (05:19)
[2018-12-07] MEDS ORDERED: Ketorolac 30 MG/ML VIAL IM ONE (05:56)
[2018-12-07] MEDS ORDERED: Ketorolac 30 MG/ML VIAL IVP ONE (06:08)
--- NOTE | 2018-12-07 06:10 | Event Note ---
Date of Encounter: 12/07/18 Time of Encounter: 05:44 Alerted by pts. nurse TRAMAINE Nath that the pt. had become suddenly bradycardic. Pt. is admitted for viral meningitis. Pt. has been experiencing worsening headache. Went to see pt. w/Dr. Agarwal. On exam, pts. HR in 40s. When pt. helped to sitting position, HR improved to high 60s. Pt. currently has washcloth over eyes d/t photophobia. Stat CT of the head ordered along with a one-time dose of Toradol IM 30 mg for headache. Will hold Fioricet for now in order to avoid further bradycardia. Echocardiogram ordered d/t current changes. Consider MRI of the head/brain w/contrast to assess for meningeal changes. Nurse instructed to monitor pt. very closely and alert Dr. Agarwal or myself of any adverse changes.
[2018-12-07 08:00] LABS: Adenovirus Qual PCR NOT DETECTED; Enterovirus RNA Qual (PCR) NOT DETECTED
--- NOTE | 2018-12-07 09:17 | Infectious Disease Progress No ---
Date of Encounter: 12/07/18 Time of Encounter: 09:15 - Assessment and Plan (1) Meningitis Current Visit: Yes Status: Acute Symptoms consistent with meningitis. Status post LP 12/02/18. CSF TNC 811 with 100% lymphocytes and elevated protein. Gram stain is negative. Culture is negative. Likely viral in etiology. Respiratory infectious panel negative. Enterovirus, HSV, VZV, and adenovirus negative. Clinically, the patient appears improved since Friday. Recommendations: Check LFTs. Check HIV. Continue supportive care (anti-emetics, IV fluids, pain management) per the primary team. (2) Tobacco abuse Current Visit: Yes Status: Acute (3) Allergy to penicillin Current Visit: Yes Status: Acute Pt has allergies/adverse reactions to the following: - Amoxicillin - rash, hives - Penicillins - difficulty breathing - Subjective Interval history: Patient seen and examined. Patient was noted to have bradycardia overnight. CT head completed and negative. Patient states overall she better this morning. Reports continued headache and neck pain, but better. Reports some intermittent nausea and vomiting, but states she feels a little hungry this morning and her is bringing her something to eat. Continues to report fevers with chills and rigors. Denies abdominal pain, chest pain, shortness of breath, or cough. Denies oral thrush or new skin lesions. Infect Dis PN-Objective Data - Labs CBC & Chem 7: 12/07/18 10:00 12/07/18 10:00 Labs: Laboratory Results - last 24 hr 12/02/18 12/02/18 12/06/18 16:12 16:12 09:58 WBC 4.5 RBC 3.66 L Hgb 11.2 L Hct 32.2 L MCV 88.0 MCH 30.6 MCHC 34.8 RDW 11.4 L Plt Count 190 MPV 10.2 Immature Gran % 0.2 Seg Neutrophils % 54.1 Lymphocytes % 26.7 Monocytes % 11.0 Eosinophils % 7.3 Basophils % 0.7 Neutrophils # 2.5 Lymphocytes # 1.2 Monocytes # 0.5 Eosinophils # 0.3 Basophils # 0.0 Sodium Potassium Chloride Carbon Dioxide BUN Creatinine Est GFR ( Amer) Est GFR (Non-Af Amer) BUN/Creatinine Ratio Glucose Calculated Osmolality Calcium Adenovirus Source CSF Adenovirus (PCR) NOT DETECTED Enterovirus Source CSF Enterovirus RNA (PCR) NOT DETECTED Herpes Simplex Source CSF Herpes Simplex DNA PCR NOT DETECTED Varicella-Zoster Source CSF VZV DNA (PCR) NOT DETECTED 12/06/18 09:58 WBC RBC Hgb Hct MCV MCH MCHC RDW Plt Count MPV Immature Gran % Seg Neutrophils % Lymphocytes % Monocytes % Eosinophils % Basophils % Neutrophils # Lymphocytes # Monocytes # Eosinophils # Basophils # Sodium 137 Potassium 3.6 Chloride 110 H Carbon Dioxide 22 L BUN 11 Creatinine 0.55 L Est GFR ( Amer) > 60 Est GFR (Non-Af Amer) > 60 BUN/Creatinine Ratio 20 Glucose 83 Calculated Osmolality 283 Calcium 8.3 L Adenovirus Source Adenovirus (PCR) Enterovirus Source Enterovirus RNA (PCR) Herpes Simplex Source Herpes Simplex DNA PCR Varicella-Zoster Source VZV DNA (PCR) Cultures: Cultures 12/02/18 16:14 CSF Culture - Final Cerebral Spinal Fluid 12/02/18 16:14 Cryptococcal Antigen - Final Cerebral Spinal Fluid 12/02/18 14:11 Influenza Types A,B Antigen - Final Nasopharyngeal Serology 12/03/18 12/02/18 12/02/18 Range/Units 14:45 16:12 16:12 CSF Volume mL CSF Appearance (Clear) CSF Color (Colorless) CSF RBC (0.000 - 0.002) M/mcL CSF Tot Nucleated Cells (0-5) TNC/mcL CSF Seg Neutrophils CSF Band Neutrophils % CSF Lymphocytes % % CSF Monocytes % CSF Eosinophils % CSF Basophils % CSF Other Cells % CSF Glucose (40-70) mg/dL CSF Xanth Comm (Not Observe) CSF Total Protein (15-45) mg/dL Chlamy pneumoniae PCR Not Detected (Not Detect) Adenovirus Source CSF Adenovirus (PCR) Not Detected NOT DETECTED B. pertussis DNA (PCR) Not Detected (Not Detect) B.parapertussis DNA PCR Not Detected (Not Detect) Coronavirus OC43 (PCR) Not Detected (Not Detect) Coronavirus HKU1 (PCR) Not Detected (Not Detect) Coronavirus 229E (PCR) Not Detected (Not Detect) Coronavirus NL63 (PCR) Not Detected (Not Detect) Enterovirus Source CSF Enterovirus RNA (PCR) NOT DETECTED Herpes Simplex Source CSF Herpes Simplex DNA PCR NOT DETECTED HSV (PCR) Source Human Metapneumovir PCR Not Detected (Not Detect) Influenza A (H1) PCR Not Detected (Not Detect) Influ A (H1N1/09) PCR Not Detected (Not Detect) Influenza A (H3) PCR Not Detected (Not Detect) Influenza A Untype (PCR) Not Detected (Not Detect) Influenza Type B (PCR) Not Detected (Not Detect) M.pneumoniae DNA (PCR) Not Detected (Not Detect) Parainfluenza 1 (PCR) Not Detected (Not Detect) Parainfluenza 2 (PCR) Not Detected (Not Detect) Parainfluenza 3 (PCR) Not Detected (Not Detect) Parainfluenza 4 (PCR) Not Detected (Not Detect) RSV (PCR) Not Detected (Not Detect) Entero/Rhino (PCR) Not Detected (Not Detect) Varicella-Zoster Source CSF VZV DNA (PCR) NOT DETECTED 12/02/18 12/02/18 Range/Units 14:17 11:53 CSF Volume 2.0 mL CSF Appearance Clear (Clear) CSF Color Colorless (Colorless) CSF RBC < 0.002 (0.000 - 0.002) M/mcL CSF Tot Nucleated Cells 811 H* (0-5) TNC/mcL CSF Seg Neutrophils TNP CSF Band Neutrophils % TNP CSF Lymphocytes % 100.0 % CSF Monocytes % TNP CSF Eosinophils % TNP CSF Basophils % TNP CSF Other Cells % TNP CSF Glucose 48 (40-70) mg/dL CSF Xanth Comm Not Observed (Not Observe) CSF Total Protein 94 H (15-45) mg/dL Chlamy pneumoniae PCR (Not Detect) Adenovirus Source Adenovirus (PCR) B. pertussis DNA (PCR) (Not Detect) B.parapertussis DNA PCR (Not Detect) Coronavirus OC43 (PCR) (Not Detect) Coronavirus HKU1 (PCR) (Not Detect) Coronavirus 229E (PCR) (Not Detect) Coronavirus NL63 (PCR) (Not Detect) Enterovirus Source Enterovirus RNA (PCR) Herpes Simplex Source Herpes Simplex DNA PCR NOT DETECTED HSV (PCR) Source SERUM Human Metapneumovir PCR (Not Detect) Influenza A (H1) PCR (Not Detect) Influ A (H1N1/09) PCR (Not Detect) Influenza A (H3) PCR (Not Detect) Influenza A Untype (PCR) (Not Detect) Influenza Type B (PCR) (Not Detect) M.pneumoniae DNA (PCR) (Not Detect) Parainfluenza 1 (PCR) (Not Detect) Parainfluenza 2 (PCR) (Not Detect) Parainfluenza 3 (PCR) (Not Detect) Parainfluenza 4 (PCR) (Not Detect) RSV (PCR) (Not Detect) Entero/Rhino (PCR) (Not Detect) Varicella-Zoster Source VZV DNA (PCR) - Impressions Impressions Head CT 12/07/18 05:54 IMPRESSION: No acute intracranial abnormality. D/ / Chiki Rosa MD / Chiki Rosa MD Interpreting Provider: Chiki Rosa MD Exam - Constitutional Vitals: Temp Pulse Resp BP Pulse Ox 98.4 F 47 18 116/71 96 12/07/18 08:08 12/07/18 08:08 12/07/18 08:08 12/07/18 08:08 12/07/18 08:08 General appearance: average body habitus, cooperative, no acute distress - Head Head exam: Present: atraumatic, normal inspection, normocephalic - Eye Eye exam: Present: EOMI, normal appearance, PERRL Pupils: Present: normal accommodation - ENT ENT exam: Present: mucous membranes moist - Neck Neck exam: Present: meningismus, normal inspection - Respiratory Respiratory exam: Present: CTAB. Absent: rales, respiratory distress, rhonchi, wheezes - Cardiovascular Cardiovascular exam: Present: bradycardia, +S1, +S2. Absent: irregular rhythm - GI/Abdominal GI/Abdominal exam: Present: normal bowel sounds, soft. Absent: distended, t enderness - Extremities Exam Extremities exam: Present: normal inspection. Absent: joint swelling, pedal edema, tenderness - Neurological Exam Neurological exam: Present: alert, oriented X3, no focal deficits - Psychiatric Psychiatric exam: Present: normal affect, normal mood - Skin Skin exam: Present: dry, intact, normal color, warm Consult Discharge Plan - Plan Referrals: NONE,PCP [Primary Care Provider] - - Attending Attestation I examined this patient and my medical decision-making was reviewed with the Resident Physician. I agree with the documented findings, disposition and treatment plan as described except to the extent set forth below. Patient not improve. Clinically doing worse. Headache is severe. Patient also having bradycardia and intractable nausea. I do not know why her symptoms are not improving. All workup has been negative so far. Neurology has been consulted await the recommendation. Not sure if CSF leak as a culprit. MRI of the head has been ordered. Discussed at length with Dr. Mayorga. Consider transfer the patient to a tertiary center where they might have more to offer. I had a long discussion with the patient and the mother and the sister all at bedside regarding recent travel. Apparently she never been to [place] but in October she was in [facility]. Patient denies any tick bites. Denies any animal encounter.
[2018-12-07] MEDS: Nicotine 21 MG PATCH.TD24 TD SCH (09:55)
[2018-12-07] MEDS ORDERED: Gadolinium Contrast Agent (WT Based) IV PRN ×2 (09:59→12:24)
--- NOTE | 2018-12-07 10:06 | Internal Med Progress Note ---
Hospitalist Progress Note - Encounter Date of Encounter: 12/07/18 - Subjective Interval History: Patient developed bradycardia overnight; stat CT of the head was reported which was negative for any acute intracranial findings Echocardiogram and MRI of the brain pending Patient without any improvement in headaches on Tylenol, IV Toradol, sublingual oxycodone 10 mg and Fioricet. Patient also with continued fever/chills for MAXIMUM TEMPERATURE of 100.9 in the last 24 hours - Exam Vitals: Temp Pulse Resp BP Pulse Ox 98.4 F 47 18 116/71 96 12/07/18 08:08 12/07/18 08:08 12/07/18 08:08 12/07/18 08:08 12/07/18 08:08 - Assessment and Plan (1) Meningitis Current Visit: Yes Status: Acute Assessment and Plan: Patient still complaining of headaches this morning currently on Tylenol, IV Toradol, sublingual oxycodone 10 mg and Fioricet Patient did have a MAXIMUM TEMPERATURE of 100.0 overnight Lumbar puncture on 12/02/18 revealed cerebrospinal fluid with 811 total nucleated cells with 100% lymphocytes, glucose of 48 and total protein of 94 Culture of cerebral spinal fluid negative as well as cryptococcal antigen Cultures for adenovirus and enterovirus PCR pending Infectious disease following and suspects viral etiology as respiratory infectious panel negative as well. CT of the head negative for any acute intracranial findings; MRI of the brain pending Will continue supportive care pain control for headaches and anti-emetics as needed in addition to IV fluids Infectious disease following an appreciate any additional recommendations. (2) Bradycardia Current Visit: Yes Status: Acute Assessment and Plan: Patient developed heart rate in the 40s overnight Echocardiogram pending and will monitor on telemetry (3) Tobacco abuse Current Visit: Yes Status: Acute Assessment and Plan: Nicotine patch DVT Prophylaxis: SCDs - Time Spent with Patient Total time spent is greater than 50% in coordination of care (as documented) at patient's floor/unit and/or counseling patient: Internal Medicine: Result - Labs CBC & Chem 7: 12/06/18 09:58 12/06/18 09:58 Labs: Short CBC 12/06/18 Range/Units 09:58 WBC 4.5 (4.3-11.1) K/mcL Hgb 11.2 L (11.5-15.4) g/dL Hct 32.2 L (35.3-44.9) % Plt Count 190 (140-400) K/mcL Neutrophils # 2.5 (1.6-8.9) K/mcL BMP 12/06/18 09:58 Sodium 137 Potassium 3.6 Chloride 110 H Carbon Dioxide 22 L BUN 11 Creatinine 0.55 L Glucose 83 Calcium 8.3 L - Impressions Impressions Head CT 12/07/18 05:54 IMPRESSION: No acute intracranial abnormality. D/ / Chiki Rosa MD / Chiki Rosa MD Interpreting Provider: Chiki Rosa MD Consult Discharge Plan - Plan Referrals: NONE,PCP [Primary Care Provider] -
[2018-12-07 10:33] LABS: Basophils % 0.7 %; Eosinophils # 0.3 K/mcL (0.0-0.6); Eosinophils % 7.2 %; Hematocrit 32.8 % (35.3-44.9); Hemoglobin 11.3 g/dL (11.5-15.4); Immature Granulocytes % 0.2 % (0-4); Lymphocytes # 1.2 K/mcL (0.6-4.6); Lymphocytes % 29.9 %; Mean Corpuscular HGB Conc 34.5 g/dL (31.6-35.5); Mean Corpuscular Hemoglobin 30.7 pg (28.0-33.3); Mean Corpuscular Volume 89.1 fL (83.0-100.0); Monocytes # 0.5 K/mcL (0.0-1.3); Monocytes % 13.2 %; Platelet Count 181 K/mcL (140-400); Red Blood Count 3.68 M/mcL (3.82-4.97); Red Cell Distribution Width 11.5 % (11.5-14.5); Segmented Neutrophils % 48.8 %
[2018-12-07 10:56] LABS: BUN/Creatinine Ratio 16 (6-26); Blood Urea Nitrogen 10 mg/dL (6-20); Calcium 8.4 mg/dL (8.6-10.3); Carbon Dioxide 22 mEq/L (23-29); Chloride 110 mEq/L (98-107); Glucose 88 mg/dL (70-105); Osmolality,Calculated 286 (280-300); Potassium 3.8 mEq/L (3.5-5.1); Sodium 139 mEq/L (136-145); eGFR For Non-African Americans > 60 (> 60)
[2018-12-07] MEDS: Ondansetron 4 MG/2 ML VIAL IVP PRN (12:15)
--- NOTE | 2018-12-07 13:04 | Neurology - Consult Note ---
Addendum entered and electronically signed by Efrain Araiza MD 12/07/18 16:26: Patient is seen and examined. case discussed and imaging studies and laboratory works reviewed together in the presence of Dr. Be Mejia and i agree with his history taking, physicial examination, assessment and plan. Outlined below. in , patient developed headaches, neck pain blurred vision and neck rigidity and had CSF study 5 days ago showed WBC 811, with 100% lymphocytes, protein of 95, negative HSV PVR. patient initially treated with antibiotic and acycclorvir which was subsequently discontinued. Clinically patient still has rather severe headaches that can be aggravated with standing up position and she is also nauseated. however, patient has no mental status changes, and she is wide awake and alert. No significant nuchal rigidity for now. There likely is a component of post lumbar puncture headache at this time. Treatment include fluid resuscitation, bed rest, caffeine intake, and last resort would be blood patch by IR. Will also obtain MRI of brain and MRV to asse ss intracranial abnormality and possibility of sagittal thrombosis. Please continue medical and supportive care. Total time spent on this patient is approximately 7 minutes, of which more than 50% were used toward coordination of care. All questions answered. Consulted communicated with medical team promptly. Original Note: Date of Encounter: 12/07/18 Time of Encounter: 13:03 Assessment and Plan (1) Headache Current Visit: Yes Status: Acute - Likely secondary to viral meningitis - Patient presented with headache, intermittent blurred vision, and neck rigidity - Lumbar puncture on 12/02/18 demonstrated CSF TMC of 811 with 100% lymphocytes and elevated protein - Gram stain was negative - CSF cultures showed no growth - CSF PCR for adenovirus and enterovirus are pending Plan: - MRI is ordered; results pending - Sagittal thrombosis is another possibility; will order MRV - Avoid upright position for possible post-LP headache; consider combination of [id number] - if patient's headache continues to worsen, consider epidural blood patch Qualifiers: Qualified Code(s): R51 - Headache History of Present Illness HPI: Marissa Hahn is a 33-year-old female with no significant past medical history who presented to [facility] ED on 12/02/18 with a chief complaint of a throbbing headache and neck stiffness of 3 days duration. She states that it started on New Years Radha. Patient tried to take Tylenol and aspirin, which did not help. He continued into the next day, and was associated with chills. Patient reported that she was unable to move her neck to either side and was having significant headache. Also reported one episode of blurry vision. Upon arrival to the emergency room, patients vital signs were as follows: Temperature 98.3, pulse 98, respiratory rate 16, blood pressure 121/81, and O2 saturation was 100. Laboratory analysis was unremarkable, and serum serology was negative. CT scan of the head showed no acute intracranial process. Lumbar puncture demonstrated CSF fluid total protein 94, glucose 48, nucleated cells 811. Patient was started on acyclovir, vancomycin, and Rocephin; switched to meropenem due to severe penicillin allergy. Infectious disease was consulted. CSF Gram stain and cultures were negative. Per chart review, patient had intermittent fevers, reaching a MAXIMUM TEMPERATURE of 101.2 on 12/05/18. Per event note on 12/07/18, patient became bradycardic and experienced worsening headache. Heart rate was in the 40s, which improves when helps to sitting position. Stat CT of the head was ordered. This CT scan showed no acute intracranial abnormalities. Patient was seen and examined at bedside; patient is in a significant amount of distress due to her headache. Patient states that her headache is gotten worse since admission. She notes that her headache is worse when standing up and with bright lights. She also complains of neck pain and restricted range of motion. also admits to lower extremity weakness, difficulty walking, and fatigue. Currently denies vomiting, numbness, tingling. No further complaints. Past Med Surg Social Fam HX - Past Medical History Medical history: no medical history Additional medical history: ovarian cysts Psychiatric history: no psych history - Past Surgical History Surgical History: no surgical history Additional surgical history: partial hysterectomy - Social History Smoking Status: Current every day smoker Packs per day: 1/2 Smokeless Tobacco Status: No Alcohol use: none Drug use: none Medications and Allergies No Known Home Drugs 12/03/18 [History] 3 Allergy/AdvReac Type Severity Reaction Status Date / Time Amoxicillin Allergy Rash Verified 12/03/18 13:54 naproxen Allergy Anaphylaxis Verified 12/03/18 13:54 Penicillins Allergy Difficulty Verified 12/03/18 13:54 Breathing All Systems: The remainder of the systems were reviewed and are negative - Constitutional Constitutional ROS IM: as per HPI, chills, fatigue, headache(s), lethargy, malaise, weakness, no fever(s) - Gastrointestinal Gastrointestinal: nausea - Musculoskeletal Musculoskeletal ROS IM: as per HPI, muscle weakness, neck pain, stiffness, no numbness, no tingling - Neurological Neurological ROS: headache(s), no abnormal speech, no confusion, no numbness, no paresthesias, no sensory deficit, no tingling, no weakness, no other visual disturbances Physical Examination - Vital Signs Vital Signs: Initial Vital Signs Temp Pulse Resp BP Pulse Ox 98.3 F 98 16 121/81 100 12/02/18 11:00 12/02/18 11:00 12/02/18 11:00 12/02/18 11:00 12/02/18 11:00 - Constitutional General appearance: comfortable - Neurologic Sensorimotor examination: intact Motor examination - right side: 4/5: toe extension (EHL), plantarflexion, 5/5: biceps, triceps, 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3-11.1) L 12/07/18 10:00 RBC 3.68 M/mcL (3.82-4.97) L 12/07/18 10:00 Hgb 11.3 g/dL (11.5-15.4) L 12/07/18 10:00 Hct 32.8 % (35.3-44.9) L 12/07/18 10:00 Chloride 110 mEq/L (98-107) H 12/07/18 10:00 Carbon Dioxide 22 mEq/L (23-29) L 12/07/18 10:00 Calcium 8.4 mg/dL (8.6-10.3) L 12/07/18 10:00 CSF Tot Nucleated Cells 811 TNC/mcL (0-5) H* 12/02/18 14:17 CSF Total Protein 94 mg/dL (15-45) H 12/02/18 14:17 Consult Discharge Plan - Plan Referrals: NONE,PCP [Primary Care Provider] -
[2018-12-07] MEDS ORDERED: Ketorolac 30 MG/ML VIAL IVP PRN (13:24)
--- NOTE | 2018-12-07 13:31 | Cardiology Consult Note ---
<Tristan Claros - Last Filed: 12/07/18 13:57> Date of Encounter: 12/07/18 Time of Encounter: 13:30 Assessment and Plan (1) Meningitis Current Visit: Yes Status: Acute Per Cardiology: Management per primary service, neurology, and ID. (2) Bradycardia Current Visit: Yes Status: Acute Per Cardiology: ECG and telemetry reviewed with episodes of transient bradycardia noted. Currently sinus bradycardia in the 40s. Echo pending. Asymptomatic. Continue to monitor telemetry. Discussed and reviewed with Dr. Rice. Discussion w patient/family: The assessment and plan as outlined above was discussed with the patient and/or family members who expressed understanding and agreement. All questions were answered. Thank you for involving us in the care of your patient. Please call with any questions. History of Present Illness Consult date: 12/07/18 Requesting physician: Derrell Mayorga Consult reason: Bradycardia Chief complaint: Headache History of present illness: Ms. Hahn is a 33 year old female with a relevant past medical history of nicotine abuse admitted for headache, neck pain and stiffness. Followed by neurology and ID with viral meningitis. Cardiology consult for bradycardia. Patient seen with family at bedside. Patient confirms main symptoms were headache, neck pain, and stiffness. Prior to developing the symptoms she denied any episodes of chest pain, short of breath, palpitations, dizziness, syncope, falls. She reports past history of passing out twice in her lifetime for reasons unknown to her. Reports PCP made mention of bradycardia many years ago. Patient denies any symptoms current bradycardia and was unaware until told by nursing staff. Reports smoking about a half to one pack per day for about 10 years. Past Med Surg Social Fam HX - Past Medical History Attestation: Yes The following information was validated with the patient. Source: patient, old records reviewed Medical history: no medical history Additional medical history: ovarian cysts Psychiatric history: no psych history - Past Surgical History Surgical History: no surgical history Additional surgical history: partial hysterectomy - Social History Smoking Status: Current every day smoker Packs per day: 1/2 Smokeless Tobacco Status: No Alcohol use: none Drug use: none Medications and Allergies No Known Home Drugs 12/03/18 [History] Allergy/AdvReac Type Severity Reaction Status Date / Time Amoxicillin Allergy Rash Verified 12/03/18 13:54 naproxen Allergy Anaphylaxis Verified 12/03/18 13:54 Penicillins Allergy Difficulty Verified 12/03/18 13:54 Breathing All Systems Review: The remainder of the systems were reviewed and are negative - Constitutional Constitutional: headache(s) - Cardiovascular Cardiovascular: as per HPI Physical Examination Vital Signs, Last 4 Hours Temp Pulse Resp BP Pulse Ox 12/07/18 11:20 99.1 F 48 26 123/77 99 General: Conversant, No Apparent Distress HEENT: Atraumatic, Normocephaly, Mucus Membranes Moist Neck: No JVD, Normal carotid pulses, Other (neck rigidity) Cardiac: Reg Rate and Rhythm, Normal S1 and S2, No Murmur Lungs: Normal Breath Sounds, No Wheeze, Rales, Rhonchi Neuro: Alert and responsive, No focal deficits noted Abdomen: Soft, Non-Tender Skin: No rashes noted on visualized skin Musculoskeletal: No Chest Wall Tenderness Extremities: No Clubbing, No Cyanosis, No Edema, Normal Pulses Results 12/07/18 10:00 12/07/18 10:00 Lab Results Laboratory Tests 12/03/18 12/07/18 12/07/18 03:39 10:00 10:00 WBC 4.0 L Hgb 11.3 L Hct 32.8 L BUN 10 Est GFR (Non-Af Amer) > 60 Magnesium 1.[address] 12/02/18 11:34 IMPRESSION: No acute intracranial abnormality. D/ / Santino Elizabeth / Santino Elizabeth Interpreting Provider: Santino Elizabeth Head CT 12/07/18 05:54 IMPRESSION: No acute intracranial abnormality. D/ / Chiki Rosa MD / Chiki Rosa MD Interpreting Provider: Chiki Rosa MD Active Medications Acetaminophen (Tylenol) 650 mg PO Q6HR PRN PRN Reason: Mild Pain/Fever Stop: 06/03/19 15:34 Last Admin: 12/06/18 15:25 Dose: 650 mg Acetaminophen/Butalbital/Caffeine (Fioricet) 1 each PO Q6H PRN; Protocol PRN Reason: Headache Stop: 06/07/19 20:56 Last Admin: 12/07/18 10:10 Dose: 1 each Gadobutrol (Gadolinium Contrast Agent (Wt Based)) 1 each IV ONCE PRN; Protocol PRN Reason: SEE COMMENTS Stop: 12/09/18 10:00 Gadobutrol (Gadolinium Contrast Agent (Wt Based)) 1 each IV ONCE PRN; Protocol PRN Reason: SEE COMMENTS Stop: 12/09/18 12:25 Dextrose (Dextrose 5%) 1,000 mls @ 100 mls/hr IVC .Q10H PRN PRN Reason: HYPOGLYCEMIA Stop: 06/03/19 15:35 Sodium Chloride (0.9 % Sodium Chloride) 1,000 mls @ 100 mls/hr IVC .Q10H WILLIAM Stop: 06/06/19 13:01 Last Admin: 12/07/18 05:19 Dose: 100 mls/hr Ketorolac Tromethamine (Toradol) 30 mg IVP Q6HR PRN PRN Reason: Moderate Pain Stop: 12/08/18 23:00 Naloxone HCl (Narcan) 0.4 mg IVP Q2MIN PRN PRN Reason: SEE COMMENTS Stop: 06/03/19 15:34 Nicotine (Nicoderm) 21 mg TD DAILY WILLIAM; Protocol Stop: 06/03/19 16:01 Last Admin: 12/07/18 09:55 Dose: Not Given Ondansetron HCl (Zofran) 4 mg IVP Q6HR PRN; Protocol PRN Reason: Nausea And Vomiting Stop: 06/03/19 15:35 Last Admin: 12/07/18 12:15 Dose: 4 mg Oxycodone HCl (Oxycodone Oral Conc) 10 mg SL Q4H PRN; Protocol PRN Reason: Severe Pain Stop: 06/03/19 16:09 Last Admin: 12/06/18 13:12 Dose: 10 mg - Imaging and Cardiology Echo: pending - EKG Interpretation EKG results cardiology: personally reviewed (Twelve-lead ECG showed junctional bradycardia in the 40s), other (Telemetry reviewed with average heart rate as 24 hours and 56, sinus bradycardia 40s currently) Consult Discharge Plan - Plan Referrals: NONE,PCP [Primary Care Provider] - <Frederic Rice - Last Filed: 12/07/18 16:05> Date of Encounter: 12/07/18 - Attending Attestation I have personally performed a face to face evaluation on this patient. I have reviewed and agree with the documented findings and care plan as documented by the [employer]. History and Exam by me shows: 33-year-old female admitted for viral meningitis noted to be bradycardic. Patient's denies going hiking, although she sometimes going into the joya at her place of work. She denies insect or tick bites. No skin lesions reported. EKG shows junctional bradycardia. Echo shows normal EF and mild PI. Recommend to send Lyme serology. Monitor on telemetry. We will continue to follow along with you. Thanks, Frederic Rice MD Assessment and Plan Discussion w patient/family: The assessment and plan as outlined above was discussed with the patient and/or family members who expressed understanding and agreement. All questions were answered. Thank you for involving us in the care of your patient. Please call with any questions. History of Present Illness History of present illness: Ms. Hahn is a 33 year old female All Systems Review: The remainder of the systems were reviewed and are negative Physical Examination Vital Signs, Last 4 Hours Temp Pulse Resp BP Pulse Ox 12/07/18 15:55 97.7 F 46 18 134/77 100 Results 12/07/18 10:00 12/07/18 10:00 Lab Results 12/07/18 12/07/18 10:00 10:00 WBC 4.0 L Hgb 11.3 L Hct 32.8 L Plt Count 181 Sodium 139 Potassium 3.8 Chloride 110 H Carbon Dioxide 22 L BUN 10 Creatinine 0.61 Glucose 88 Calcium 8.4 L
[2018-12-07] MEDS: OXYCODONE Oral CONC 10 MG/0.5 ML ORAL.SYG SL PRN (13:45)
--- NOTE | 2018-12-07 15:28 | Electrocardiograph Report ---
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
[2018-12-07] MEDS: Acetaminophen 325 MG TABLET PO PRN (15:30)
[2018-12-07 15:55] VITALS: BP 134/77
[2018-12-07 15:59] LABS: Albumin 3.7 g/dL (3.5-5.7); Albumin/Globulin Ratio 1.8 (1.1-2.2); Bilirubin,Direct 0.1 mg/dL (0.0-0.2); Bilirubin,Indirect 0.3 mg/dL (0.0-1.2); Bilirubin,Total 0.4 mg/dL (0.3-1.0); Globulin 2.1 g/dL (2.4-3.5); Total Protein 5.8 g/dL (6.4-8.9)
--- NOTE | 2018-12-07 18:14 | Discharge Summary ---
Orders not resulted at time of discharge: Pending orders 12/07/18 12:24 MR head wo/w con [MR] Stat 12/07/18 15:25 YAIMA IgG ARELI rflx IFA Routine HIV-1&2 Antibody & p24 Ag Routine Date of Encounter: 12/07/18 Time of Encounter: 11:00 - Discharge Diagnosis (1) Meningitis Priority: Primary Status: Acute (2) Bradycardia Priority: Secondary Status: Acute (3) Tobacco abuse Priority: Secondary Status: Acute Hospital course: Patient is a 33-year-old female with no significant past medical history who presented to the ED complaining of a headache that has been throbbing as well as neck pain and stiffness for the past 3 days. This started on when she woke up experiencing significant neck pain and frontal headache was described as throbbing. She took Tylenol and aspirin did not help. This continued into the next day. She also felt some associated chills. She thinks she has had a fever but did not measure temperature. Today at work she could not move her neck to either side and was having significant headache and decided to come and get evaluated. She says she has had one episode of blurry vision with headaches as well. In the ER, patient had a CT head that was negative for any acute findings. She had a lumbar puncture done with CSF fluid, and back with protein total of 94, glucose of 48, nucleated cells of 811. This was highly suggestive of meningitis and the patient was ordered acyclovir, vancomycin, and ceftriaxone. During patients hospital stay infectious disease was consulted and patient was treated for suspected viral meningitis. Patients headaches did not improve with supportive care and patient also developed acute sudden bradycardia with heart rate in the 40s. The decision was made to transfer patient to a tertiary care center. Patient has been accepted at [facility] under the ho spitalist Dr. Webster who accepts the patient. - Time Spent with Patient Total time spent providing and/or coordinating discharge services: Less than 30 minutes - Discharge Medications Home Medications: No Known Home Drugs 12/03/18 [History] Allergies/Adverse Reactions: Allergy/AdvReac Type Severity Reaction Status Date / Time Amoxicillin Allergy Rash Verified 12/03/18 13:54 naproxen Allergy Anaphylaxis Verified 12/03/18 13:54 Penicillins Allergy Difficulty Verified 12/03/18 13:54 Breathing Date of admission: 12/02/18 16:12 Primary care physician: PCP NONE Consults: 12/02/18 15:33 Consult to Infectious Diseases [CONS] Routine Consulting Provider: Infectious Disease [facility] Reason for Consult: suspected meningitis Call Completed: No 12/07/18 12:07 Consult to Cardiology [CONS] Routine Comment: Consulting Provider: Cardiology Heike Reason for Consult: bradycardia Call Completed: Yes 12/07/18 12:33 Consult to Neurology [CONS] Routine Consulting Provider: Neurology [facility] Reason for Consult: ICP/Headaches Call Completed: Yes - Constitutional Vitals: Temp Pulse Resp BP Pulse Ox 97.7 F 46 18 134/77 100 12/07/18 15:55 12/07/18 15:55 12/07/18 15:55 12/07/18 15:55 12/07/18 15:55 Exam: Gen.: Nonacute distress, alert and oriented 3 ENT: Mucosal membranes moist Respiratory: Lungs are clear to auscultation bilaterally without any wheezing rhonchi or rales Cardiovascular: Normal S1 and S2 regular rate rhythm no murmurs rubs or gallops Abdomen: Soft, nontender and nondistended with positive bowel sounds Extremities: No lower extremity edema Skin: Normal color - Patient Status Disposition: Transfer Other Condition: Fair - Discharge Instructions Follow Up With: NONE,PCP [Primary Care Provider] - (Patient being transfered to [facility])
[2018-12-10 10:01] LABS: ANA IgG by ELISA NONE DETECTED (None Detected)
== END 2018-12-07 18:56 | disposition other institution (70) | DRG 76 ==
LOC: EMEROOARM 10:59 → 2ANU 10:59 → SUATTDRO 16:12 → 2ANU 17:01
PROVIDERS: ADMIT Internal Medicine; ATTEND Hospitalist